=== PATIENT | male | born 2000 | race Hispanic/Latino ===

== ENCOUNTER 2024-04-15 16:30 | Emergency (ER) | payer SELFPAY ==
[2024-04-15] MEDS ORDERED: Morphine 4 MG/ML VIAL ONE (17:18)
[2024-04-15] MEDS ORDERED: Ketamine 50 MG/ML (10ML VIAL) ONE (18:20)
== END 2024-04-15 20:06 | disposition home or self-care (01) ==
LOC: MADERS 16:30
DX: S43.004A Unspecified dislocation of right shoulder joint, initial encounter (principal); S42.291A Other displaced fracture of upper end of right humerus, initial encounter for closed fracture; I10 Essential (primary) hypertension; F17.210 Nicotine dependence, cigarettes, uncomplicated; X50.9XXA Other and unspecified overexertion or strenuous movements or postures, initial encounter; Y99.0 Civilian activity done for income or pay
CPT/HCPCS: 23650; 94760; 96374; 96375; J2272